=== PATIENT | male | born 1965 | race Caucasian/White ===

== ENCOUNTER 2017-08-01 06:57 | Emergency (ER) | payer OTHER ==
--- NOTE | 2017-08-01 07:08 | ER Document Report ---
ED General - General Chief Complaint: Chest Wall Injury Stated Complaint: CHEST PAIN Time Seen by Provider: 08/01/17 07:08 Mode of Arrival: Ambulatory Information source: Patient Notes: 51-year-old smoker with hypertension fell in the dog pen over a 2 x 4 piece of wood sticking about 1.5 feet above the ground, 12 days ago and had bruising and pain on the right side of his chest. 4 days ago on Monday he started getting dyspnea on exertion with long recovery time before he would catch his breath. He presented to the emergency room this morning with a pulse ox of 85% after walking from the car. No hx PE, CAD, COPD or asthma - Related Data Allergies/Adverse Reactions: Penicillins Allergy (Verified 08/01/17 08:07) Past Medical History - General Information source: Patient - Social History Smoking Status: Current Every Day Smoker Frequency of alcohol use: None Drug Abuse: None Lives with: Spouse/Significant other Family History: Reviewed & Not Pertinent - Past Medical History Cardiac Medical History: Reports: Hx Hypertension Surgical Hx: Negative Review of Systems - Review of Systems Constitutional: No symptoms reported EENT: No symptoms reported Cardiovascular: No symptoms reported Respiratory: No symptoms reported Gastrointestinal: No symptoms reported Genitourinary: No symptoms reported Male Genitourinary: No symptoms reported Musculoskeletal: See HPI Skin: No symptoms reported Hematologic/Lymphatic: No symptoms reported Neurological/Psychological: No symptoms reported Physical Exam - Vital signs Vitals: Temp Pulse Resp BP Pulse Ox 99.6 F 110 H 24 H 162/86 H 85 L 08/01/17 06:59 08/01/17 06:59 08/01/17 06:59 08/01/17 06:59 08/01/17 06:59 Interpretation: Tachycardic, Hypoxic - General General appearance: Alert, Anxious - HEENT Head: Normocephalic, Atraumatic Eyes: Normal Conjunctiva: Normal Pupils: PERRL Mouth/Lips: Other - pale, pinked when oxygen put up to 4LPM while I was in the room Pharynx: Normal Neck: Supple. No: Subcutaneous emphysema - Respiratory Respiratory status: No respiratory distress Chest status: Nontender Breath sounds: Normal Chest palpation: Normal - Cardiovascular Rhythm: Regular Heart sounds: Normal auscultation Murmur: No - Abdominal Inspection: Normal Distension: No distension Bowel sounds: Normal Tenderness: Nontender Organomegaly: No organomegaly - Back Back: Normal, Nontender - Extremities General upper extremity: Normal inspection, Nontender, Normal color, Normal ROM , Normal temperature General lower extremity: Normal inspection, Nontender, Normal color, Normal ROM , Normal temperature, Normal weight bearing. No: Joe's sign - Neurological Neuro grossly intact: Yes Cognition: Normal Orientation: AAOx4 Garfield Coma Scale Eye Opening: Spontaneous Osiris Coma Scale Verbal: Oriented Garfield Coma Scale Motor: Obeys Commands Garfield Coma Scale Total: 15 Speech: Normal Motor strength normal: LUE, RUE, LLE, RLE Sensory: Normal - Psychological Associated symptoms: Normal affect, Normal mood - Skin Skin Temperature: Warm Skin Moisture: Dry Skin Color: Normal Course - Re-evaluation Re-evalutation: 08/01/17 08:22 dr lynch involved in case and wants to put in chest tube if he needs one and he rec. transfer due to the pulmonary contusion he thinks is on the left. Get chest ct first, pending BUN/ creatinine level 08/01/17 08:57 since the injury occurred 12 days ago, chest tube not indicated. Hbg. 7.8, type and screen ordered, pending CT results. 02 94 % 08/01/17 09:18 Patient prefers to go to [place] which is closer for him. I have called [facility] asking for the pulmonology obgyn nurse and cardiothoracic surgery. They will call me back. Increase oxygen to 5lpm as 02 was down to 92%, now 94% 08/01/17 09:34 CT scan shows large right pleural effusion with nondisplaced rib fractures 5 through 10. Partial collapse of the right middle lobe and collapse of the right lower lobe. Patchy groundglass infiltrates throughout the left lung. No pneumothorax. CT of the abdomen is normal. 08/01/17 09:50 dr. gabriel accepted the pt for transport to trauma surgery service, surgical bed [facility]. 08/01/17 11:43 Patient oxygenation went up to 98% after the IV fentanyl the pain and tension in the right side started to come back I did decrease his oxygen to 4 L/min at this time and gave him another dose of 50 mcg of fentanyl. Transport will be getting the patient at 1:00. 08/01/17 12:53 [facility] is here to transport pt to [facility]. Vitals stable on oxygen 4lpm puse ox 97% pain 4/5, more rx ordered for transport. - Vital Signs Vital signs: Temp Pulse Resp BP Pulse Ox 98.4 F 110 H 20 129/81 H 96 08/01/17 12:54 08/01/17 06:59 08/01/17 12:53 08/01/17 12:53 08/01/17 12:53 - Laboratory Result Diagrams: 08/01/17 07:33 08/01/17 07:33 Laboratory results interpreted by me: 08/01/17 08/01/17 07:33 07:33 WBC 16.5 H RBC 2.77 L Hgb 7.8 L Hct 24.2 L RDW 18.6 H Seg Neuts % (Manual) 86 H Lymphocytes % (Manual) 8 L Abs Neuts (Manual) 14.2 H Abs Basophils (Manual) 0.3 H Chloride 108 H Glucose 150 H ALT 20 L Total Protein 6.1 L Discharge - Discharge Clinical Impression: Hemothorax Pulmonary contusion Qualifiers: Encounter type: initial encounter Laterality: left Qualified Code(s): S27.321A - Contusion of lung, unilateral, initial encounter Fracture, ribs Qualifiers: Encounter type: initial encounter Rib fracture type: multiple ribs Fracture type: closed Laterality: right Qualified Code(s): S22.41XA - Multiple fractures of ribs, right side, initial encounter for closed fracture Anemia Qualifiers: Anemia type: other cause Condition: Stable Disposition: [facility]
[2017-08-01] MEDS ORDERED: NORMAL SALINE 1000 ML 1,000 ML IV ONE (07:21)
[2017-08-01] MEDS ORDERED: LIDOCAINE 1% INJ-PF (10 MG/ML) 30 ML SDV INJ ONE (07:29)
--- NOTE | 2017-08-01 07:38 | EKG REPORT ---
SEVERITY:- ABNORMAL ECG - SINUS RHYTHM PROBABLE POSTERIOR INFARCT NONSPECIFIC T ABNORMALITIES, LATERAL LEADS : Confirmed by: Murali Malagon MD 01-Aug-2017 07:37:40
--- NOTE | 2017-08-01 07:40 | RADIOLOGY REPORT (SQ) ---
EXAM DESCRIPTION: CHEST SINGLE VIEW CLINICAL HISTORY: 51 years Male, fall, no breath sounds on the right COMPARISON: None. NUMBER OF VIEWS/TECHNIQUE: 1/AP LIMITATIONS: None. FINDINGS: Moderate patchy airspace opacity of the left mid lung field, moderate opacity-effusion of the right lower 60% hemithorax, small patchiness of the left lung base. Right cardiac margin is obscured. Mild osteoarthritis. IMPRESSION: Bilateral opacities may indicate pulmonary edema, multifocal pneumonia, and/or moderate right effusion.
[2017-08-01 07:51] LABS: HEMATOCRIT 24.2 % (37.9-51.0); MEAN CORPUSCULAR HEMOGLOBIN 28.2 pg (27.0-33.4); MEAN CORPUSCULAR HGB CONC 32.4 g/dL (32.0-36.0); MEAN CORPUSCULAR VOLUME 87 fl (80-97); PLATELET COUNT 334 10^3/uL (150-450); RED BLOOD COUNT 2.77 10^6/uL (4.35-5.55); RED CELL DISTRIBUTION WIDTH 18.6 % (11.5-14.0); WHITE BLOOD COUNT 16.5 10^3/uL (4.0-10.5)
[2017-08-01 08:09] LABS: ALANINE AMINOTRANSFERASE 20 U/L (21-72); ALBUMIN 3.6 g/dL (3.5-5.0); ALKALINE PHOSPHATASE 95 U/L (38-126); ANION GAP 8 (5-19); ASPARTATE AMINO TRANSFERASE 17 U/L (17-59); BILIRUBIN,DIRECT 0.3 mg/dL (0.0-0.4); BILIRUBIN,TOTAL 0.3 mg/dL (0.2-1.3); BLOOD UREA NITROGEN 17 mg/dL (7-20); CALCIUM 8.7 mg/dL (8.4-10.2); CARBON DIOXIDE 22 mmol/L (22-30); CHLORIDE 108 mmol/L (98-107); GLUCOSE 150 mg/dL (75-110); POTASSIUM 4.2 mmol/L (3.6-5.0); SODIUM 138.3 mmol/L (137-145); TOTAL PROTEIN 6.1 g/dL (6.3-8.2)
[2017-08-01 08:25] LABS: ABSOLUTE LYMPHOCYTES# (MANUAL) 1.3 10^3/uL (0.5-4.7); ABSOLUTE MONOCYTES # (MANUAL) 0.5 10^3/uL (0.1-1.4); ABSOLUTE NEUTROPHILS# (MANUAL) 14.2 10^3/uL (1.7-8.2); BASOPHILS % (MANUAL) 2 % (0-2); EOSINOPHILS % (MANUAL) 1 % (0-6); LYMPHOCYTES % (MANUAL) 8 % (13-45); MONOCYTES % (MANUAL) 3 % (3-13); SEGMENTED NEUTROPHILS % (MAN) 86 % (42-78); TOTAL CELLS COUNTED 100
[2017-08-01 08:27] LABS: ANISOCYTOSIS 1+; PLATELET CLUMPS PRESENT; POLYCHROMASIA SLIGHT; TOXIC GRANULATION SLIGHT
[2017-08-01 08:28] LABS: PLATELET COMMENT ADEQUATE
[2017-08-01 08:32] LABS: HEMOGLOBIN 7.8 g/dL (13.5-17.0)
--- NOTE | 2017-08-01 09:23 | RADIOLOGY REPORT (SQ) ---
EXAM DESCRIPTION: CT ABD/PELVIS WITH IV ONLY; CT CHEST WITH COMPLETED DATE/TIME: 08/01/2017 9:07 am REASON FOR STUDY: fall on monday COMPARISON: Chest radiographs from earlier. CONTRAST TYPE AND DOSE: contrast/concentration: Isovue 370.00 mg/ml; Total Contrast Delivered: 95.0 ml; Total Saline Delivered: 52.0 ml RENAL FUNCTION: GFR > 60. TECHNIQUE: CT scan of the chest performed using helical scanning technique with dynamic intravenous contrast injection. Images reviewed with lung, soft tissue and bone windows. Reconstructed coronal a nd sagittal MPR images reviewed. All images stored on PACS. CT scan of the abdomen and pelvis performed with intravenous and without oral contrastusing helical s deidra technique with dynamic intravenous contrast injection. Images reviewed with lung, soft tissu e and bone windows. Reconstructed coronal and sagittal MPR images reviewed. Delayed images for eval uation of the urinary system also acquired and evaluated. All images stored on PACS. All CT scanners at this facility use dose modulation, iterative reconstruction, and/or weight based d osing when appropriate to reduce radiation dose to as low as reasonably achievable (ALARA). [facility]: Dose Right [facility]: CareDose [facility]: Dose Right [facility]: Teradose 4D [facility]: [employer] RADIATION DOSE: CT Rad equipment meets quality standard of care and radiation dose reduction techniq ues were employed. CTDIvol: 10.8 - 15.2 mGy. DLP: 1598 mGy-cm. . LIMITATIONS: Clinically localizing information not available. FINDINGS: CHEST: LUNGS AND PLEURA: Large right pleural effusion. Most of this looks like simple fluid, but there is s ome peripheral non dependent increased density, likely a component of hemothorax. Collapse of the ri ght lower lobe. Partial collapse of the right middle lobe. Patchy ground-glass infiltrates througho ut the left lung. No pneumothorax identified. No left pleural fluid. HILAR AND MEDIASTINAL STRUCTURES: No mediastinal mass or suggestion of mediastinal hematoma. HEART AND VASCULAR STRUCTURES: Normal heart size. No pericardial fluid. No evidence of aortic injur y or aneurysm. HARDWARE: None. THYROID AND OTHER SOFT TISSUES: Thyroid incompletely evaluated. No soft tissue mass or hematoma in t he chest wall. No overt axillary adenopathy. BONES: Nondisplaced 5th through 10th right rib fractures. OTHER: No other significant finding. ABDOMEN AND PELVIS: LIVER: No evidence of laceration. Homogeneous enhancement. SPLEEN: No splenic injury or fluid identified. PANCREAS: No masses. No significant calcifications. No adjacent inflammation or peripancreatic fluid collections. Pancreatic duct not dilated. GALLBLADDER: No identified stones by CT criteria. No inflammatory changes to suggest cholecystitis. ADRENAL GLANDS: No significant masses or asymmetry. RIGHT KIDNEY AND URETER: Normal enhancement. No evidence of injury. No obstruction or suspicious ma ss. LEFT KIDNEY AND URETER: Normal enhancement. No evidence of injury. No obstruction or suspicious mas s. AORTA AND VESSELS: No aneurysm. No dissection. Renal arteries, SMA, celiac without stenosis. No tanya s venous clot. RETROPERITONEUM: No retroperitoneal adenopathy, hemorrhage or masses. BOWEL AND PERITONEAL CAVITY: No masses or inflammatory changes. No free fluid or peritoneal masses. APPENDIX: Surgically absent. ABDOMINAL WALL: Fat containing supraumbilical hernia. No abdominal wall mass or hematoma evident. PELVIS: No mass or free fluid. Normal bladder. BONES: No pelvic or spine fracture evident. Hips intact. 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 OTHER: No other significant finding. IMPRESSION: 1. Thoracic injuries as above. Numerous right rib fractures without displacement, 5th through 10th. Large right minimally complicated pleural effusion with collapse of the right lower lo be and partial collapse of the right middle lobe. Patchy ground-glass infiltrates throughout the lef t lung, potentially related to aspiration. No pneumothorax. No mediastinal injury evident. 2. No suggestion of abdominopelvic injury. No solid organ laceration, abnormal fluid or gas. TECHNICAL DOCUMENTATION: JOB ID: [id number] Quality ID # [id number]: Final reports with documentation of one or more dose reduction techniques (e.g., Au tomated exposure control, adjustment of the mA and/or kV according to patient size, use of iterative reconstruction technique) 2010 [employer]- All Rights Reserved Reading location - IP/workstation name: [email or web address]
[2017-08-01] MEDS ORDERED: CEFEPIME 2 GM/D5W RTU 2 GM/50 ML RTUPB IV ONE (09:25)
[2017-08-01] MEDS ORDERED: FENTANYL CITRATE INJ/PF 100 MCG/2 ML AMPUL IV ONE ×3 (10:20→12:53)
[2017-08-01 12:05] VITALS: BP 129/81
== END 2017-08-01 12:59 | disposition short-term general hospital (02) ==
LOC: ER 06:57
DX: S27.1XXA Traumatic hemothorax, initial encounter (principal); S27.321A Contusion of lung, unilateral, initial encounter; S22.41XA Multiple fractures of ribs, right side, initial encounter for closed fracture; W01.0XXA Fall on same level from slipping, tripping and stumbling without subsequent striking against object, initial encounter; Y93.K1 Activity, walking an animal; Y92.89 Other specified places as the place of occurrence of the external cause; D64.9 Anemia, unspecified; J98.19 Other pulmonary collapse; R09.02 Hypoxemia; R00.0 Tachycardia, unspecified; I10 Essential (primary) hypertension; F17.200 Nicotine dependence, unspecified, uncomplicated; Z88.0 Allergy status to penicillin
CPT/HCPCS: 93005; 96376; 99285; 96361; 96375; 96365; 86900; 86901; 36415; 87040; 86850; 85025; 80053; 71045; 71260; 74177; 93010; J3010; J7030; J0692